=== PATIENT | female | born 1995 | race African-American/Black ===

== ENCOUNTER 2021-11-04 07:31 | Emergency (ER) | payer MEDICAID, OTHER ==
[~2021-11-04] VITALS: Ht 170.2 cm; Wt 72.7 kg
[2021-11-04 08:07] LABS: Urine Bacteria NONE SEEN /hpf (None Seen); Urine Blood 1+ /uL (Negative); Urine WBC 5 /hpf (0 - 5)
[2021-11-04 08:46] LABS: Amphetamine Screen, Urine NEGATIVE (NEGATIVE); Barbiturate Scree,Urine NEGATIVE (NEGATIVE); Benzodiazephine Screen, Urine NEGATIVE (NEGATIVE); Cannabinoid Screen, Urine POSITIVE (NEGATIVE); Cocaine Screen, Urine NEGATIVE (NEGATIVE)
[2021-11-04 08:53] LABS: Opiate Scree,Urine NEGATIVE (NEGATIVE); Phencyclidine Screen, Urine NEGATIVE (NEGATIVE)
[2021-11-04] MEDS ORDERED: ACET-1158 PO (10:20)
[2021-11-04] MEDS ORDERED: CEPH-510 PO (10:20)
[2021-11-04 11:16] VITALS: BP 138/78
== END 2021-11-04 11:18 | disposition home or self-care (01) ==
LOC: ER 07:31
DX: O23.41 Unspecified infection of urinary tract in pregnancy, first trimester (principal); N39.0 Urinary tract infection, site not specified; F12.10 Cannabis abuse, uncomplicated; Z79.899 Other long term (current) drug therapy; Z3A.01 Less than 8 weeks gestation of pregnancy
CPT/HCPCS: 36415; 76801; 76817; 80307; 81001; 81025; 84702

== ENCOUNTER 2022-12-30 09:39 | Emergency (ER) | payer MEDICAID ==
[~2022-12-30] VITALS: Ht 170.2 cm; Wt 75.9 kg
[~2022-12-30 09:39] MED LIST: ACET500T58 PO; CEPH-510 PO
[2022-12-30 10:48] LABS: Basophils # (auto) 0.1 10 ^3/uL (0-0.2); Basophils % (auto) 0.4 % (0.0-2.0); Eosinophils # (auto) 0.1 10 ^3/uL (0-0.8); Eosinophils % (auto) 0.8 % (0.0-7.0); Hematocrit 37.7 % (36.0-46.0); Hemoglobin 12.4 g/dL (12.2-16.2); Lymphocytes # (auto) 1.2 10 ^3/uL (0.4-5.4); Lymphocytes % (auto) 9.5 % (10.0-50.0); Mean Corpuscular Hemoglobin 29.8 pg (28.0-32.0); Mean Corpuscular Hgb Conc. 32.8 g/dL (32.0-36.0); Monocytes # (auto) 0.8 10 ^3/uL (0-1.3); Monocytes % (auto) 5.8 % (0.0-12.0); Neutrophils # (auto) 10.8 10 ^3/uL (1.6-8.6); Neutrophils % (auto) 83.5 % (37.0-80.0); Red Blood Cells 4.14 10^6/uL (4.0-5.20)
[2022-12-30 11:14] LABS: Alanine Aminotransferase 16 U/L (7-40); Albumin 4.8 g/dL (3.2-4.8); Alkaline Phosphatase 63 U/L (46-116); Anion Gap 7 (5-15); Aspartate Aminotransferase 14 U/L (13-40); BUN/Creatinine Ratio 14.7 (10.0-20.0); Blood Urea Nitrogen 11 mg/dL (9-23); Calcium 9.6 mg/dL (8.5-10.1); Carbon Dioxide 23 mmol/L (20-30); Chloride 110 mmol/L (98-107); Glucose 98 mg/dL (74-106); Potassium 4.2 mmol/L (3.5-5.1); Sodium 140 mmol/L (136-145)
[2022-12-30 11:15] LABS: Bilirubin, Total 0.3 mg/dL (0.2-1.0); Total Protein 7.4 g/dL (5.7-8.2)
[2022-12-30 11:22] LABS: Lipase 27 U/L (12-53)
[2022-12-30 11:33] LABS: Urine Bacteria NONE SEEN /hpf (None Seen); Urine Blood Negative /uL (Negative); Urine Clarity Clear (Clear); Urine Color Yellow (Yellow); Urine Mucus FEW (None Seen); Urine Protein, UAD TRACE (Negative); Urine Specific Gravity 1.038 (1.001-1.035); Urine Urobilinogen Normal (Negative); Urine WBC 2 /hpf (0 - 5); Urine pH 5.5 (5.0-8.0)
[2022-12-30] MEDS ORDERED: ONDANSETRON HCL 4 MG/2 ML VIAL IV ONE (12:30)
[2022-12-30] MEDS ORDERED: SODIUM CHLORIDE 0.9% 1,000 ML IV ONE (12:30)
[2022-12-30 12:53] VITALS: BP 118/81; PULSE 79; RESP 17; TEMP 97.7; O2SAT 100
[2022-12-30] MEDS ORDERED: ZOFR4T PO (14:34)
== END 2022-12-30 15:05 | disposition home or self-care (01) ==
LOC: ER 09:39
DX: R10.33 Periumbilical pain (principal); R10.2 Pelvic and perineal pain; R11.2 Nausea with vomiting, unspecified; R19.7 Diarrhea, unspecified
CPT/HCPCS: 36415; 76705; 76801; 76817; 80053; 81001; 83690; 84702; 85025; 96361; 96374; 99285; J2405; J7030

== ENCOUNTER 2023-01-11 15:08 | Emergency (ER) | payer MEDICAID ==
[~2023-01-11] VITALS: Ht 170.2 cm; Wt 75.2 kg
[~2023-01-11 15:08] MED LIST changes: +ZOFR4T PO
[2023-01-11 15:55] LABS: Basophils # (auto) 0.1 10 ^3/uL (0-0.2); Basophils % (auto) 0.7 % (0.0-2.0); Eosinophils # (auto) 0.1 10 ^3/uL (0-0.8); Eosinophils % (auto) 1.4 % (0.0-7.0); Hematocrit 36.6 % (36.0-46.0); Lymphocytes # (auto) 2.3 10 ^3/uL (0.4-5.4); Lymphocytes % (auto) 24.3 % (10.0-50.0); Mean Corpuscular Hgb Conc. 32.7 g/dL (32.0-36.0); Mean Corpuscular Volume 91.7 fL (80.0-100.0); Monocytes # (auto) 0.9 10 ^3/uL (0-1.3); Monocytes % (auto) 9.9 % (0.0-12.0); Neutrophils % (auto) 63.7 % (37.0-80.0); Red Blood Cells 3.99 10^6/uL (4.0-5.20); Red Cell Distribution Width 15.4 % (11.8-14.3); White Blood Cell 9.4 10^3/uL (4.4-10.8)
[2023-01-11 16:14] LABS: Alanine Aminotransferase 12 U/L (7-40); Albumin 4.5 g/dL (3.2-4.8); Alkaline Phosphatase 58 U/L (46-116); Anion Gap 5 (5-15); Aspartate Aminotransferase 11 U/L (13-40); BUN/Creatinine Ratio 10.3 (10.0-20.0); Blood Urea Nitrogen 8 mg/dL (9-23); Calcium 9.3 mg/dL (8.7-10.4); Carbon Dioxide 25 mmol/L (20-30); Chloride 108 mmol/L (98-107); Glucose 76 mg/dL (74-106); Potassium 3.9 mmol/L (3.5-5.1); Sodium 138 mmol/L (136-145)
[2023-01-11 16:15] LABS: Bilirubin, Total 0.3 mg/dL (0.2-1.0)
[2023-01-11 19:39] LABS: Urine Bacteria NONE SEEN /hpf (None Seen); Urine Blood Negative /uL (Negative); Urine Clarity Clear (Clear); Urine Color Yellow (Yellow); Urine Mucus FEW (None Seen); Urine Protein, UAD Negative (Negative); Urine Specific Gravity 1.027 (1.001-1.035); Urine Urobilinogen Normal (Negative); Urine WBC 2 /hpf (0 - 5); Urine pH 5.5 (5.0-8.0)
[2023-01-11 19:59] VITALS: BP 109/77; PULSE 70; RESP 17; TEMP 98; O2SAT 100
== END 2023-01-11 20:00 | disposition home or self-care (01) ==
LOC: ER 15:08
DX: O20.0 Threatened abortion (principal); R10.2 Pelvic and perineal pain; Z3A.01 Less than 8 weeks gestation of pregnancy
CPT/HCPCS: 36415; 76801; 76817; 80053; 81001; 84702; 85025